=== PATIENT | male | born 1955 | race Caucasian/White ===

== ENCOUNTER 2021-01-24 14:13 | Emergency (ER) | payer OTHER ==
[~2021-01-24] VITALS: Ht 188 cm; Wt 122.5 kg
[2021-01-24] MEDS ORDERED: FISH OIL 1,0001 EAC9 PO (14:31)
[2021-01-24] MEDS ORDERED: ASPIRIN EC81 M1 PO (14:31)
[2021-01-24] MEDS ORDERED: GENTAK5 ML INTRAOCULR (14:45)
[2021-01-24 14:48] VITALS: BP 125/74
== END 2021-01-24 14:49 | disposition home or self-care (01) ==
LOC: M.ERS 14:13
DX: T15.11XA Foreign body in conjunctival sac, right eye, initial encounter (principal); X58.XXXA Exposure to other specified factors, initial encounter; Y93.89 Activity, other specified; Y92.89 Other specified places as the place of occurrence of the external cause; Y99.8 Other external cause status